=== PATIENT | male | born 1985 ===

== ENCOUNTER 2018-02-24 09:14 | Outpatient (CLI) | payer OTHER ==
[~2018-02-24] VITALS: Ht 182.9 cm; Wt 90.7 kg
[2018-02-24] MEDS ORDERED: FLONASE16 GM NASAL (12:16)
[2018-02-24] MEDS ORDERED: ZYRTEC10 MG PO (12:17)
[2018-02-24] MEDS ORDERED: MEDROL4 MG PO (12:18)
[2018-02-24] MEDS ORDERED: CEFUROXIME500 MG PO (12:18)
== END 2018-02-24 09:30 | disposition home or self-care (01) ==
LOC: OFIC 805 09:14
DX: J31.0 Chronic rhinitis (principal); J35.1 Hypertrophy of tonsils; J35.8 Other chronic diseases of tonsils and adenoids; H61.23 Impacted cerumen, bilateral

== ENCOUNTER 2018-04-28 10:53 | Outpatient (CLI) | payer OTHER ==
[~2018-04-28] VITALS: Ht 182.9 cm; Wt 90.7 kg
[~2018-04-28 10:53] MED LIST: CEFUROXIME500 MG PO; FLONASE16 GM NASAL; MEDROL4 MG PO; ZYRTEC10 MG PO
== END 2018-04-28 11:10 | disposition home or self-care (01) ==
LOC: OFIC 805 10:53
DX: J32.8 Other chronic sinusitis (principal); J35.1 Hypertrophy of tonsils; R05 Cough; M95.0 Acquired deformity of nose

== ENCOUNTER → 2019-01-19 | Outpatient (CLI) | payer OTHER ==
[~2019-01-19] VITALS: Ht 182.9 cm; Wt 90.7 kg
[~2019-01-19] MED LIST changes: +ZANTAC300 MG PO
== END | disposition home or self-care (01) ==
LOC: OFIC 805 08:35
DX: J32.8 Other chronic sinusitis (principal); J35.1 Hypertrophy of tonsils; J31.0 Chronic rhinitis; J34.2 Deviated nasal septum; J34.3 Hypertrophy of nasal turbinates; R05 Cough; H61.21 Impacted cerumen, right ear

== ENCOUNTER 2019-02-09 07:53 | Outpatient (CLI) | payer OTHER ==
[~2019-02-09] VITALS: Ht 182.9 cm; Wt 90.7 kg
[2019-02-09] MEDS ORDERED: ZYRTEC10 MG PO (10:46)
[2019-02-09] MEDS ORDERED: FLONASE16 GM NASAL (10:47)
[2019-02-09] MEDS ORDERED: ZANTAC300 MG PO (10:47)
== END 2019-02-09 08:50 | disposition home or self-care (01) ==
LOC: OFIC 805 07:53
DX: J32.8 Other chronic sinusitis (principal); J35.1 Hypertrophy of tonsils; J31.0 Chronic rhinitis; J34.2 Deviated nasal septum; J34.3 Hypertrophy of nasal turbinates